=== PATIENT | male | born 1965 | race Two or more races ===

== ENCOUNTER 2018-02-09 19:14 | Inpatient (IN) | payer BC, OTHER ==
[~2018-02-09] VITALS: Ht 185.4 cm; Wt 93.9 kg
--- NOTE | 2018-02-09 19:15 | NUR ---
PT BIB RA. COMP OF HAVING A SYNCOPAL EPISODE. -HEAD INJURY, -BODYILY HARM. PT AOX4. AMBULATORY W.STEADY GAIT. NO SOB NOTED. NO ACUTE DISTRESS AT THIS TIME. AWAITING MD HUDSON.
[2018-02-09] MEDS ORDERED: ONDANSETRON HCL/PF 4 MG/2 ML VIAL ONE (19:53)
[2018-02-09] MEDS ORDERED: ASPIRIN 325 MG TABLET ONE (19:53)
[2018-02-09] MEDS ORDERED: IV NS 0.9% 1,000 ML BAG IV ONE (20:00)
[2018-02-09] MEDS ORDERED: ONDANSETRON HCL/PF 4 MG/2 ML VIAL IVP ONE (20:00)
[2018-02-09] MEDS ORDERED: ASPIRIN 325 MG TABLET PO ONE (20:00)
[2018-02-09 20:03] LABS: BASOPHILS # (AUTO) 0.1 /CMM (0.0-0.2); BASOPHILS % (AUTO) 0.7 % (0.0-2.0); HEMOGLOBIN 17.6 g/dL (13.5-17.5); LYMPHOCYTES # (AUTO) 2.8 /CMM (0.8-4.8); LYMPHOCYTES % (AUTO) 30.7 % (20.0-44.0); MEAN CORPUSCULAR HGB CONC 33 g/dl (31.0-36.0); MEAN CORPUSCULAR VOLUME 97 fL (80-96); MONOCYTES # (AUTO) 0.8 /CMM (0.1-1.30); MONOCYTES % (AUTO) 8.7 % (2.0-12.0); NEUTROPHILS # (AUTO) 5.1 /CMM (1.8-8.9); NEUTROPHILS % (AUTO) 55.9 % (43.0-81.0); PLATELET COUNT (AUTO) 230 /CMM (150-450); RED BLOOD CELL COUNT(AUTO) 5.43 MIL/uL (4.5-6.0); WHITE BLOOD COUNT (AUTO) 9.1 K/uL (4.3-11.0)
[2018-02-09 20:06] LABS: HEMATOCRIT 53 % (39-51)
--- NOTE | 2018-02-09 20:06 | NUR ---
CRITICAL HCT VALUE REPORTED. MD ZHANG AWARE.
[2018-02-09 20:11] LABS: CALCIUM, SERUM 8.8 mg/dL (8.5-10.1); CARBON DIOXIDE 23 mmol/L (21-32); CHLORIDE 106 mmol/L (98-107); CREATININE 0.9 mg/dL (0.6-1.3); GLUCOSE 92 mg/dL (74-106); POTASSIUM 3.8 mmol/L (3.5-5.1); SODIUM SERUM 144 mmol/L (136-145); UREA NITROGEN, BLOOD 30 mg/dL (7-18)
--- NOTE | 2018-02-09 21:05 | NUR ---
Patient is resting comfortably in bed with eyes closed. Easily aroused. VSS
--- NOTE | 2018-02-09 21:25 | NUR ---
ROOM ASSIGNMENT 116-1
--- NOTE | 2018-02-09 21:25 | NUR ---
DR PEACE ADMITTING. DIAGNOSIS:SYNCOPE.
--- NOTE | 2018-02-09 21:28 | NUR ---
pt taken to CT
--- NOTE | 2018-02-09 21:35 | NUR ---
pt returned from CT
[2018-02-09] MEDS ORDERED: ASPI-992 PO (22:16)
[2018-02-09] MEDS ORDERED: ATOR80TA PO (22:16)
[2018-02-09] MEDS ORDERED: EZET10TA14 PO (22:17)
--- NOTE | 2018-02-09 22:17 | NUR ---
REPORT GIVEN TO DELMAR ANGEL.
--- NOTE | 2018-02-09 22:20 | NUR ---
RN NOTE RECEIVED PT IN NO ACUTE DISTRESS IN BED. PT IS A/O X 3 AND ABLE TO MAKE NEEDS KNOWN. PT NOT C/O ANY SOB, DIFFICULTY BREATHING OR PAIN AT THIS TIME. PT IS ON RA AND TOLERATING WELL. PT HAS LEFT HAND 18G THAT IS CLEAN DRY INTACT AND PATENT WITH SALINE LOCK. BED IN LOW LOCK POSITION WITH RAILS UP X 2. CALL LIGHT WITHIN REACH AND ALL SAFETY MEASURES ENSURED AND CARRIED OUT. WILL CONTINUE TO MONITOR.
[2018-02-10] VITALS: BP 125/71
[2018-02-10] MEDS ORDERED: IV NS 0.9% 1,000 ML IV PRN (03:21)
[2018-02-10] MEDS ORDERED: HYDROCODONE/APAP 5/325MG 1 EACH TABLET PO PRN (03:30)
[2018-02-10] MEDS ORDERED: ONDANSETRON HCL/PF 4 MG/2 ML VIAL IVP PRN (03:30)
[2018-02-10] MEDS ORDERED: ZOLPIDEM TARTRATE 5 MG TABLET PO PRN (03:30)
[2018-02-10] MEDS ORDERED: MAGNESIUM HYDROXIDE 30 ML UDC PO PRN (03:30)
[2018-02-10] MEDS ORDERED: MAG HYDROX/AL HYDROX/SIMETH 30 ML UDC PO PRN (03:30)
[2018-02-10] MEDS ORDERED: Z GUARD REMEDY 2 OZ OINT TP PRN (03:30)
[2018-02-10] MEDS ORDERED: ACETAMINOPHEN 325 MG TABLET PO PRN (03:30)
[2018-02-10 04:00] VITALS: BP 118/71
--- NOTE | 2018-02-10 07:00 | NUR ---
IT SERVICE CONTINUITY SUPERVISOR OPENING NOTES RECEIVED REPORT FROM PM NURSE. PT IN BED, AWAKE A/OX4. ON ROOM AIR, TOLERATING. ON TELE SR 66. NO S/SX OF DISTRESS. PT HAS NO COMPLAINTS AT THIS TIME. GOAL IS TO SEE MD SOON POSSIBLE AND TO BE DISCHARGED. IV PATENT WITH FLUIDS RUNNING. BED IN LOCKED/LOWEST POSITION. WILL CONT TO MONITOR.
[2018-02-10 08:00] VITALS: BP 128/71
[2018-02-10] MEDS ORDERED: Medication Not On Formulary EA (Atorvastatin Calcium (Lipitor) 1 TAB) PO SCH (09:00)
[2018-02-10] MEDS ORDERED: EZETIMIBE 10 MG TABLET PO SCH (09:00)
[2018-02-10] MEDS ORDERED: ASPIRIN 325 MG TABLET PO SCH (09:00)
[2018-02-10] MEDS ORDERED: IV NS 0.9% 1,000 ML IV SCH (11:00)
[2018-02-10 11:21] LABS: BASOPHILS % (AUTO) 0.3 % (0.0-2.0); EOSINOPHILS % (AUTO) 2.1 % (0.0-6.0); HEMATOCRIT 48 % (39-51); HEMOGLOBIN 16.2 g/dL (13.5-17.5); LYMPHOCYTES # (AUTO) 1.7 /CMM (0.8-4.8); LYMPHOCYTES % (AUTO) 15.3 % (20.0-44.0); MEAN CORPUSCULAR HGB CONC 34 g/dl (31.0-36.0); MEAN CORPUSCULAR VOLUME 95 fL (80-96); MONOCYTES # (AUTO) 0.9 /CMM (0.1-1.30); MONOCYTES % (AUTO) 8.5 % (2.0-12.0); NEUTROPHILS % (AUTO) 73.8 % (43.0-81.0); PLATELET COUNT (AUTO) 196 /CMM (150-450); RED BLOOD CELL COUNT(AUTO) 5.04 MIL/uL (4.5-6.0); WHITE BLOOD COUNT (AUTO) 10.9 K/uL (4.3-11.0)
--- NOTE | 2018-02-10 11:30 | NUR ---
MS RN NOTES PT AMBULATED IN HALLWAY; STEADY GAIT.
[2018-02-10 11:35] LABS: ALBUMIN 3.6 g/dL (3.4-5.0); BILIRUBIN,TOTAL 0.4 mg/dL (0.2-1.0); CALCIUM, SERUM 8.6 mg/dL (8.5-10.1); CREATININE 0.8 mg/dL (0.6-1.3); MAGNESIUM 2.1 mg/dL (1.8-2.4); TOTAL PROTEIN, SERUM 6.8 g/dL (6.4-8.2)
[2018-02-10 12:00] VITALS: BP 128/71
[2018-02-10] MEDS ORDERED: LEVETIRACETAM (250 MG) 250 MG TABLET PO SCH (14:00)
--- NOTE | 2018-02-10 16:03 | NUR ---
MS RN NOTES PT LEFT WITH FAMILY MEMBER. DISCHARGE INSTRUCTIONS/PRESCRIPTION WITH PATIENT. IV SITE NO S/SX INFECTION AND REMOVED. PT EDUCATION PROVIDED ABOUT MEDICATION. ALL NEEDS MET.
[2018-02-10] MEDS ORDERED: ATORVASTATIN 40 MG TABLET PO SCH (22:00)
== END 2018-02-10 16:03 | disposition home or self-care (01) | DRG 101 ==
LOC: ER 19:15 → TELE1 21:31 → MEDSG1 02-10 10:47
PROVIDERS: ADMIT Internal Medicine; ATTEND Nurse Practitioner Acute Care
DX: R56.9 Unspecified convulsions (principal); N17.9 Acute kidney failure, unspecified; D32.9 Benign neoplasm of meninges, unspecified; I25.10 Atherosclerotic heart disease of native coronary artery without angina pectoris; Z95.5 Presence of coronary angioplasty implant and graft; E78.5 Hyperlipidemia, unspecified; E66.9 Obesity, unspecified; I10 Essential (primary) hypertension; K21.9 Gastro-esophageal reflux disease without esophagitis; I25.2 Old myocardial infarction; F17.210 Nicotine dependence, cigarettes, uncomplicated; Z68.27 Body mass index [BMI] 27.0-27.9, adult; Z71.3 Dietary counseling and surveillance
CPT/HCPCS: 36415; 70450-TC; 80048-TC; 80053-TC; 83735-TC; 84100-TC; 84484-TC; 85025-TC; 85730-TC; 87081-TC; 93307-TC; A4606; G0378; J2405; J7030; Z7610